=== PATIENT | male | born 1950 | race African-American/Black ===

== ENCOUNTER 2018-05-31 10:58 | Observation (INO) | payer OTHER ==
[2018-05-31] MEDS ORDERED: ASPIRIN 81 MG CHEWABLE TABLET ONE (11:44)
[2018-05-31 12:02] LABS: Absolute Lymphocytes (CBC) 1.8 K/uL (0.7-4.9); Absolute Monocytes 0.8 K/uL (0.1-1.3); Absolute Neutrophil 4.8 K/uL (1.8-8.0); Basophils % 0.8 % (0-1.3); Eosinophils % 3.2 % (0-4.4); Hematocrit 42.1 % (39.6-49.0); Lymphocytes % 23.5 % (15.3-44.8); MCH 22.4 pg (27.0-35.0); MCV 67.4 fL (80-100); MPV 11.4 fL (7.6-11.3); Monocytes % 10.5 % (3.3-12.3); RBC Red Blood Cell Count 6.25 M/uL (4.33-5.43)
[2018-05-31 12:07] LABS: BUN Blood Urea Nitrogen 14 mg/dL (7-18); Bicarbonate 31 mmol/L (21-32); Glucose Level 107 mg/dL (74-106); NT PRO-BNP 67 pg/mL (<125); Sodium Level 140 mmol/L (136-145); Troponin (Emerg Dept Use Only) < 0.02 ng/mL (0.0-0.045)
--- NOTE | 2018-05-31 12:08 | RAD REPORT ---
EXAM DESCRIPTION: RAD - Chest Single View - 05/31/2018 11:49 am CLINICAL HISTORY: CHEST PAIN Chest pain. COMPARISON: Chest Pa And Lat (2 Views) dated 01/27/2016; CHEST PA AND LAT 2 VIEW dated 10/30/2015; JULIO CESAR ST PA AND LAT 2 VIEW dated 10/22/2009; CHEST PA AND LAT 2 VIEW dated 09/25/2008 FINDINGS: Portable technique limits examination quality. The lungs are grossly clear. The heart is normal in size. No displaced fractures. IMPRESSION: No acute intrathoracic process suspected.
[2018-05-31 12:27] LABS: Blood Morphology Comment NOTED (NOT SEEN); Platelet Estimate ADEQ; Platelets, Giant FEW; Urine White Blood Cell Casts OK
[2018-05-31 12:28] LABS: Anisocytosis 1+; Target Cells 1+
--- NOTE | 2018-05-31 12:42 | ER ---
Nurse's Notes [facility] Name: Zurdo Lyn Age: 68 yrs Sex: Male : 1950 Arrival Date: 05/31/2018 Time: 11:00 Bed 19 Private MD: Bryce Hung F Diagnosis: Chest pain, unspecified Presentation: 05/31 11:17 Presenting complaint: Patient states: chest tightness that began approximately 1 hour ss ago. Transition of care: patient was not received from another setting of care. Onset of symptoms was May 31, 2018. Risk Assessment: Do you want to hurt yourself or someone else? Patient reports no desire to harm self or others. Initial Sepsis Screen: Does the patient meet any 2 criteria? No. Patient's initial sepsis screen is negative. Does the patient have a suspected source of infection? No. Patient's initial sepsis screen is negative. Care prior to arrival: None. 11:17 Method Of Arrival: Ambulatory ss 11:17 Acuity: BRETT 3 ss Historical: - Allergies: 11:19 No Known Allergies; ss - Immunization history:: Adult Immunizations up to date. - Social history:: Smoking status: Patient/guardian denies using tobacco. - Family history:: not pertinent. - Ebola Screening: : Patient denies exposure to infectious person Patient denies travel to an Ebola-affected area in the 21 days before illness onset. - Hospitalizations: : No recent hospitalization is reported. Screenin:38 Abuse screen: Denies threats or abuse. Denies injuries from another. Nutritional aj screening: No deficits noted. Tuberculosis screening: No symptoms or risk factors identified. Fall Risk None identified. Assessment: 12:00 General: Appears in no apparent distress. comfortable, Behavior is calm, cooperative, aj appropriate for age. Pain: Complains of pain in chest Pain does not radiate. Pain began 3 hours ago. Neuro: Level of Consciousness is awake, alert, obeys commands, Oriented to person, place, time, situation, Appropriate for age. Cardiovascular: Reports chest pain, Capillary refill < 3 seconds in bilateral fingers Patient's skin is warm and dry. Respiratory: Airway is patent Respiratory effort is even, unlabored, Respiratory pattern is regular, symmetrical. GI: Abdomen is flat, non-distended. Derm: Skin is intact, is healthy with good turgor, Skin is pink, warm \T\ dry. normal. Vital Signs: 11:19 BP 164 / 97; Pulse 102; Resp 18; Pulse Ox 98% on R/A; Weight 104.33 kg; Height 6 ft. 1 ss in. (185.42 cm); Pain 4/10; 14:38 BP 142 / 96; Pulse 69; Resp 18; Temp 98.6; Pulse Ox 98% on R/A; aj 11:19 Body Mass Index 30.34 (104.33 kg, 185.42 cm) ED Course: 11:00 Patient arrived in ED. mr 11:00 Bryce Hung MD is Private Physician. mr 11:08 Dick Biggs MD is Attending Physician. rn 11:18 Triage completed. ss 11:19 Arm band placed on right wrist. 11:22 EKG done, by sales service technician. reviewed by Dick Biggs MD. 3 11:32 Initial lab(s) drawn, by tn, sent to lab. Inserted saline lock: 22 gauge in right jb1 antecubital area, using aseptic technique. Blood collected. 11:36 Anh Pena, RN is Primary Nurse. aj 11:47 X-ray completed. Portable x-ray completed in exam room. Patient tolerated procedure ml well. 11:50 XRAY Chest (1 view) In Process Unspecified. EDMS 12:41 Bryce Hung MD is Hospitalizing Provider. rn 14:38 Patient has correct armband on for positive identification. playground monitor on. Pulse aj ox on. NIBP on. 14:38 No provider procedures requiring assistance completed. Patient admitted, IV remains in aj place. intact. Patient maintains SpO2 saturation greater than 95% on room air. Administered Medications: 11:58 Drug: Aspirin Chewable Tablet 324 mg Route: PO; aj 15:24 Follow up: Response: No adverse reaction aj 15:00 Drug: Potassium Chloride 40 mEq Route: PO; aj 15:25 Follow up: Response: No adverse reaction aj Outcome: 12:41 Decision to Hospitalize by Provider. rn 15:25 Admitted to Med/surg accompanied by tech, via wheelchair, Report called to Oumou lizarraga 15:25 Condition: good 15:25 Instructed on the need for admit. 15:25 Patient left the ED. aj Signatures: Dispatcher [employer] EDMS Misbah Boyce jb1 PenaAnh RN RN aj Rivera, Maria mr Dhruv, Dick Colbert MD MD rn Smirch, Shelby, RN RN ss Montes, Shakira 3 Corrections: (The following items were deleted from the chart) 14:43 14:38 BP 142 / 96; Pulse 69bpm; Resp 18bpm; Pulse Ox 98% RA; aj aj 15:24 15:24 Potassium Chloride 40 mEq PO aj elham
--- NOTE | 2018-05-31 12:42 | EDPHYS ---
Physician Documentation [facility] Name: Zurdo Lyn Age: 68 yrs Sex: Male : 1950 Arrival Date: 05/31/2018 Time: 11:00 Bed 19 Private MD: Bryce Hung F ED Physician Dick Biggs HPI: 05/31 11:15 This 68 yrs old Black Male presents to ER via Unassigned with complaints of Chest Pain, rn Numbness Of Arm. 11:15 The patient or guardian reports chest pain that is located primarily in the substernal rn area. Onset: at 10:00. The pain radiates to the left arm. Associated signs and symptoms: Pertinent positives: None. Pertinent negatives: abdominal pain, cough, diaphoresis, dizziness, lightheadedness, nausea, near syncope, palpitations, recent travel, shortness of breath, syncope, vomiting. The chest pain is described as a heaviness, a pressure. Duration: The patient or guardian reports a single episode, that is still ongoing. Modifying factors: The symptoms are alleviated by nothing. the symptoms are aggravated by nothing. Severity of pain: At its worst the pain was moderate in the emergency department the pain is unchanged. The patient has not experienced similar symptoms in the past. REports chest pressure/squeezing, radiates down left arm, began at rest while at work at 1000, states normal stress test 1 year ago, no fever/cough/sob/abd pain, has never had this pain before. . Historical: - Allergies: 11:19 No Known Allergies; ss - Immunization history:: Adult Immunizations up to date. - Social history:: Smoking status: Patient/guardian denies using tobacco. - Family history:: not pertinent. - Ebola Screening: : Patient denies exposure to infectious person Patient denies travel to an Ebola-affected area in the 21 days before illness onset. - Hospitalizations: : No recent hospitalization is reported. ROS: 11:15 Constitutional: Negative for fever, chills, and weight loss, Eyes: Negative for injury, rn pain, redness, and discharge, Neck: Negative for injury, pain, and swelling, Cardiovascular: Negative for palpitations, and edema, Respiratory: Negative for shortness of breath, cough, wheezing, and pleuritic chest pain, Abdomen/GI: Negative for abdominal pain, nausea, vomiting, diarrhea, and constipation, MS/Extremity: Negative for injury and deformity, Skin: Negative for injury, rash, and discoloration, Neuro: Negative for headache, weakness, tingling, and seizure. Exam: 11:15 Constitutional: This is a well developed, well nourished patient who is awake, alert, rn and in no acute distress. Head/Face: Normocephalic, atraumatic. Cardiovascular: Regular rate and rhythm with a normal S1 and S2. No gallops, murmurs, or rubs. Normal PMI, no JVD. No pulse deficits. Respiratory: Lungs have equal breath sounds bilaterally, clear to auscultation and percussion. No rales, rhonchi or wheezes noted. No increased work of breathing, no retractions or nasal flaring. Abdomen/GI: Soft, non-tender, with normal bowel sounds. No distension or tympany. No guarding or rebound. No evidence of tenderness throughout. Skin: Warm, dry with normal turgor. Normal color with no rashes, no lesions, and no evidence of cellulitis. MS/ Extremity: Pulses equal, no cyanosis. Neurovascular intact. Full, normal range of motion. Equal circumference. Neuro: Awake and alert, GCS 15, oriented to person, place, time, and situation. Cranial nerves II-XII grossly intact. Motor strength 5/5 in all extremities. Sensory grossly intact. Cerebellar exam normal. Normal gait. Vital Signs: 11:19 BP 164 / 97; Pulse 102; Resp 18; Pulse Ox 98% on R/A; Weight 104.33 kg; Height 6 ft. 1 ss in. (185.42 cm); Pain 4/10; 14:38 BP 142 / 96; Pulse 69; Resp 18; Temp 98.6; Pulse Ox 98% on R/A; aj 11:19 Body Mass Index 30.34 (104.33 kg, 185.42 cm) ss MDM: 11:08 Patient medically screened. rn 12:34 Differential diagnosis: acute myocardial infarction, acute pericarditis, coronary rn artery disease chest wall pain, pleurisy, pneumothorax, stable angina, unstable angina. The patient was given aspirin in the Emergency Department. Data reviewed: vital signs, nurses notes. Data reviewed: lab test result(s), EKG, radiologic studies, plain films, and as a result, I will admit patient. Counseling: I had a detailed discussion with the patient and/or guardian regarding: the historical points, exam findings, and any diagnostic results supporting the discharge/admit diagnosis, lab results, radiology results, the need for further work-up and treatment in the hospital. Response to treatment: the patient's symptoms have mildly improved after treatment, and as a result, I will admit patient. Admission orders: after a detailed discussion of the patient's condition and case, the admit orders are written by me. 13:44 ED course: message left for Dr. Hung regarding admission \T\ 1345. . rn 05/31 11:15 Order name: Basic Metabolic Panel; Complete Time: 12:18 rn 05/31 11:15 Order name: CBC with Diff; Complete Time: 12:42 rn 05/31 11:15 Order name: NT PRO-BNP; Complete Time: 12:18 rn 05/31 11:15 Order name: Troponin (emerg Dept Use Only); Complete Time: 12:18 rn 05/31 11:15 Order name: XRAY Chest (1 view); Complete Time: 12:18 rn 05/31 12:05 Order name: CBC Smear Scan; Complete Time: 12:42 EDMS 05/31 11:15 Order name: EKG; Complete Time: 11:16 rn 05/31 11:15 Order name: Cardiac monitoring; Complete Time: : rn 05/31 11:15 Order name: EKG - Nurse/Tech; Complete Time: : rn 05/31 11:15 Order name: IV Saline Lock; Complete Time: : rn 05/31 11:15 Order name: Labs collected and sent; Complete Time: : rn 05/31 11:15 Order name: O2 Per Protocol; Complete Time: : rn 05/31 11:15 Order name: O2 Sat Monitoring; Complete Time: :34 rn Administered Medications: 11:58 Drug: Aspirin Chewable Tablet 324 mg Route: PO; aj 15:24 Follow up: Response: No adverse reaction aj 15:00 Drug: Potassium Chloride 40 mEq Route: PO; aj 15:25 Follow up: Response: No adverse reaction aj Disposition: 05/31/18 12:41 Hospitalization ordered by Bryce Hung for Observation. Preliminary diagnosis is Chest pain, unspecified. - Bed requested for Telemetry/MedSurg (observation). - Status is Observation. aj - Condition is Stable. - Problem is new. - Symptoms have improved. UTI on Admission? No Signatures: Dispatcher [employer] EDAmy Desai RN RN dw Myers, Amanda, RN RN aj Nieto, Roman, MD MD rn Smirch, Shelby, RN RN ss Corrections: (The following items were deleted from the chart) 14:00 12:41 Hospitalization Ordered by Bryce Hung MD for Observation. Preliminary dw diagnosis is Chest pain, unspecified. Bed requested for Telemetry/MedSurg (observation). Status is Observation. Condition is Stable. Problem is new. Symptoms have improved. UTI on Admission? No. rn 15:25 14:00 05/31/2018 12:41 Hospitalization Ordered by Bryce Hung MD for Observation. aj Preliminary diagnosis is Chest pain, unspecified. Bed requested for Telemetry/MedSurg (observation). Status is Observation. Condition is Stable. Problem is new. Symptoms have improved. UTI on Admission? No. dw
[2018-05-31] MEDS ORDERED: POTASSIUM CL SA 10 MEQ TAB PO ONE (14:54)
--- NOTE | 2018-05-31 15:01 | EKG ---
Test Date: 2018-05-31 Test Time: 11:19:24 Linoleum Layer Apprentice: DAVON MEASUREMENT RESULTS: Intervals: Rate: 91 AK: 180 QRSD: 84 QT: 360 QTc: 442 [place]: P: 47 AK: 180 QRS: 41 T: 56 INTERPRETIVE STATEMENTS: Normal sinus rhythm Normal ECG Compared to ECG 09/08/2008 16:15:11 No significant changes Electronically Signed On 05-31-18 15:01:08 CDT by Karl Marie
[2018-05-31] MEDS ORDERED: ACETAMINOPHEN 500 MG TAB PO PRN (15:44)
[2018-05-31] MEDS ORDERED: ONDANSETRON 4 MG/2 ML VIAL IV PRN (15:44)
[2018-05-31 16:16] VITALS: BMI 26.7
[2018-05-31 21:56] VITALS: O2SAT 95
[2018-06-01 06:37] LABS: Absolute Lymphocytes (CBC) 1.8 K/uL (0.7-4.9); Absolute Monocytes 0.8 K/uL (0.1-1.3); Eosinophils % 4.5 % (0-4.4); Hematocrit 39.5 % (39.6-49.0); Lymphocytes % 22.1 % (15.3-44.8); MCH 22.7 pg (27.0-35.0); MCV 67.8 fL (80-100); MPV 11.3 fL (7.6-11.3); Monocytes % 9.6 % (3.3-12.3); RBC Red Blood Cell Count 5.82 M/uL (4.33-5.43)
[2018-06-01 06:49] LABS: Potassium 3.8 mmol/L (3.5-5.1)
[2018-06-01] MEDS ORDERED: ASPIRIN EC 81 MG TAB PO SCH (09:00)
--- NOTE | 2018-06-01 09:22 | EKG ---
Test Date: 2018-06-01 Test Time: 08:41:05 Inside Sales Engineer: MAKENZIE MEASUREMENT RESULTS: Intervals: Rate: 71 ID: [id number] QRSD: 80 QT: 406 QTc: 441 [place]: P: 47 ID: [id number] QRS: 77 T: 45 INTERPRETIVE STATEMENTS: Normal sinus rhythm Normal ECG Compared to ECG 05/31/2018 11:19:24 No significant changes Electronically Signed On 06-01-18 09:21:51 CDT by Karl Marie
[2018-06-01 09:51] LABS: Hypochromasia 1+; Platelet Estimate ADEQ; Target Cells 1+; Urine White Blood Cell Casts OK
[2018-06-01 09:52] LABS: Blood Morphology Comment NOTED (NOT SEEN)
[2018-06-01 12:24] VITALS: BP 137/95; TEMP 97.8
--- NOTE | 2018-06-01 12:43 | CON ---
History Of Present Illness: Mr. Lyn is 68. He came to our hospital yesterday about 10 in the [facility]. He was at work, sitting, had a tight feeling in his chest. It lasted 5 hours, went away spont aneously. No nausea, vomiting, sweating. His left arm seemed to have some pain as well. Since he h as been in the hospital, cardiac enzymes are all normal. EKGs are all normal. The patient has no hi story of myocardial infarction, stroke, other aspects of coronary heart disease. He takes blood pres sure medicine and lipid medications. He is treated by Dr. Hung with excellent control of blood pr essure and lipids. He uses no tobacco. No illegal drugs. Leads an active lifestyle and is not obes e. He does not have exertional chest pain. Physical Examination: General: 6 feet 1 inch, 203 pounds. HEENT: Normal. Lungs: Clear. Cardiac: Normal. Abdomen: Soft. Extremities: Normal. Diagnostic Data: EKGs normal. Impression: The patient probably had noncardiac pain. We can do an outpatient workup. He can be di scharged today, and we can do an outpatient nuclear stress test and echocardiogram. I have asked him to call my office on Sunday morning. SUNNY Voice ID: [id number] Report ID: [id number]
--- NOTE | 2018-06-02 04:53 | SS ---
Date of Discharge: 06/01/2018 A 68-year-old male with history of hypertension, hyperlipidemia was sitting on his disk working when he felt chest pain in front described as pressure-like, substernal, stayed with him for about an hour or so. He got concerned. He came to emergency room, and because of his high risk for coronary mejia ry disease he was admitted for observation for that. The patient had no palpitation, no nausea, no v omiting, no dizziness, and voiced no other complaints. Review of Systems: Cardiovascular: No palpitation. No dizziness. No shortness of breath. No other complaints. Respiratory: No complaints. ENT: No complaints. Skeletomuscular: No complaints. Neurological: No complaints. Gastrointestinal: No complaints. Past Medical History: 1.Hypertension. 2.Hyperlipidemia. 3.Gastroesophageal reflux disease. Social History: No smoking, alcohol, or drug abuse history. Family History: Noncontributory. Medications: Include amlodipine 10 mg p.o. daily, hydrochlorothiazide 25 mg p.o. daily, metoprolol 1 00 mg p.o. daily, omeprazole 20 mg p.o. daily, pravastatin 20 mg p.o. daily, and vitamin D3 400 units daily p.o. Allergies: ADHESIVE TAPE. Physical Examination: Vital Signs: Blood pressure 137/95, pulse 77, temperature 97.8. Heart: Regular rate and rhythm. Chest: Clear to auscultation. Abdomen: Soft, nontender. No hepatosplenomegaly. Bowel sounds are normoactive. Extremities: No edema. No cyanosis. Peripheral pulses are felt. Neurological examination: Alert and oriented, nonfocal, grossly intact. Diagnostic Data: Chest x-ray, no acute pathology. EKG, normal sinus rhythm with no abnormality and CBC noted. Chemistry; potassium 3.0, went up to 3.8 with supplement. Troponin less than 0.02. Hospital Course: The patient was admitted to the hospital. He had serial cardiac enzymes and was pu t on telemetry, came back negative. Cardiology has seen the patient and they thought that patient co uld have a noncardiac chest pain. They recommended that the patient be discharged and follow up with Dr. Marie on Sunday and he will arrange for a nuclear stress test. At this time, the patient has n o complaint, is feeling well. We will discharge him on aspirin 81 mg p.o. daily, continue his home m edicines and on potassium chloride 10 mEq p.o. daily, and we will follow up with the patient. Look d ischarge orders for details. MFS/MODL Voice ID: [id number] Report ID: [id number]
== END 2018-06-01 14:56 | disposition home or self-care (01) ==
LOC: ER 10:58 → ERHOLD 13:46 → 4TH 14:48
PROVIDERS: ADMIT Internal Medicine; ATTEND Internal Medicine
DX: R07.9 Chest pain, unspecified (principal); I10 Essential (primary) hypertension; E78.5 Hyperlipidemia, unspecified; K21.9 Gastro-esophageal reflux disease without esophagitis
CPT/HCPCS: 36415; 71045; 80048; 83880; 84484; 85025; 93005; 99285; G0378